=== PATIENT | male | born 1965 ===

== ENCOUNTER 2020-04-28 14:42 | Emergency (ER) | payer OTHER ==
[~2020-04-28] VITALS: Ht 195.6 cm; Wt 106.4 kg
[2020-04-28 14:56] VITALS: BP 163/97
--- NOTE | 2020-04-28 15:23 | NUR ---
Fabiana MENDEZ at bedside. COVID test performed, plan of care discussed.
[2020-04-28] MEDS ORDERED: DEXAMETHASONE 4 MG TABLET PO ONE (15:25)
[2020-04-28] MEDS ORDERED: DEXAMETHASONE 4 MG TABLET ONE (15:30)
--- NOTE | 2020-04-28 15:53 | NUR ---
pt tolerated dexamethasone. eaten crackers, aware not to go to work for 3 days until negative.
--- NOTE | 2020-04-28 15:54 | NUR ---
Previous note was actually written by this RN. Amanda SANCHEZ.
== END 2020-04-28 15:57 | disposition home or self-care (01) ==
LOC: ED 15:40
DX: J02.8 Acute pharyngitis due to other specified organisms (principal); Z20.822 Contact with and (suspected) exposure to COVID-19; B97.89 Other viral agents as the cause of diseases classified elsewhere
CPT/HCPCS: 87635; 99283